=== PATIENT | male | born 1995 | race Caucasian/White ===

== ENCOUNTER → 2021-01-19 08:59 | Outpatient (BNVA) | payer OTHER, SELFPAY | PROVIDERS: Visit Provider Physician Assistant Medical | DX: Z13.89 Encounter for screening for other disorder (principal) | CPT/HCPCS: 99202 ==

== ENCOUNTER → 2021-01-23 11:12 | Outpatient (BNVA) | payer OTHER, SELFPAY | PROVIDERS: Visit Provider Physician Assistant | DX: Z13.89 Encounter for screening for other disorder (principal) | CPT/HCPCS: 99213 ==

== ENCOUNTER 2021-06-26 22:42 | Outpatient (REF) | payer OTHER, SELFPAY ==
[2021-06-26 23:23] LABS: COVID-19 Test Negative (Negative)
== END 2021-06-26 22:43 | disposition home or self-care (01) ==
LOC: HO.LAB 22:42
PROVIDERS: Visit Provider Internal Medicine
DX: Z20.822 Contact with and (suspected) exposure to COVID-19 (principal)
CPT/HCPCS: 36415; 87635

== ENCOUNTER 2021-06-30 02:22 | Outpatient (REF) | payer OTHER, SELFPAY ==
[2021-06-30 02:54] LABS: COVID-19 Test Positive (Negative)
== END 2021-06-30 02:23 | disposition home or self-care (01) ==
LOC: HO.LAB 02:22
PROVIDERS: Visit Provider Internal Medicine
DX: Z20.822 Contact with and (suspected) exposure to COVID-19 (principal)
CPT/HCPCS: 87635